=== PATIENT | male | born 1930 | race Caucasian/White ===

== ENCOUNTER 2017-11-26 20:11 | Inpatient (IN) | payer MEDICARE, BC, OTHER ==
[~2017-11-26] VITALS: Ht 172.7 cm; Wt 93.0 kg
[2017-11-26 20:27] VITALS: BP 180/90; PULSE 97; RESP 16; TEMP 97.9; O2SAT 98
[2017-11-26 22:08] LABS: AUTOMATED NEUTROPHIL # 5.9 TH/MM3 (1.8-7.7); BASOPHIL # 0.1 TH/MM3 (0-0.2); BASOPHIL % 1.1 % (0.0-2.0); EOSINOPHIL # 0.2 TH/MM3 (0-0.4); EOSINOPHIL % 2.5 % (0.0-4.0); HEMATOCRIT 40.4 % (39.0-51.0); HEMOGLOBIN 13.6 GM/DL (13.0-17.0); LYMPH % 19.9 % (9.0-44.0); LYMPHOCYTE # 1.8 TH/MM3 (1.0-4.8); MEAN CELL VOLUME 87.8 FL (80.0-100.0); MEAN CORPUSCULAR HEMOGLOBIN 29.6 PG (27.0-34.0); MEAN CORPUSCULAR HGB CONC 33.7 % (32.0-36.0); MEAN PLATELET VOLUME 7.6 FL (7.0-11.0); MONO % 9.6 % (0.0-8.0); MONOCYTE # 0.8 TH/MM3 (0-0.9); NEUT % 66.9 % (16.0-70.0); PLATELET COUNT 281 TH/MM3 (150-450); RED CELL DISTRIBUTION WIDTH 14.3 % (11.6-17.2); WHITE BLOOD COUNT 8.8 TH/MM3 (4.0-11.0)
[2017-11-26 22:22] LABS: ALBUMIN 3.4 GM/DL (3.4-5.0); AST (GOT) 17 U/L (15-37); BICARBONATE 25.2 MEQ/L (21.0-32.0); BLOOD UREA NITROGEN 15 MG/DL (7-18); CALCIUM 9.4 MG/DL (8.5-10.1); CHLORIDE 105 MEQ/L (98-107); CREATININE 1.59 MG/DL (0.60-1.30); GLOMERULAR FILTRATION RATE 42 ML/MIN (>89); GLUCOSE,RANDOM 141 MG/DL (74-106); SODIUM (NA) 138 MEQ/L (136-145)
[2017-11-26 22:23] LABS: ALT (GPT) 13 U/L (12-78)
[2017-11-26 22:25] LABS: ALKALINE PHOSPHATASE 71 U/L (45-117); TOTAL BILIRUBIN ADULT 0.6 MG/DL (0.2-1.0); TOTAL PROTEIN 7.8 GM/DL (6.4-8.2)
--- NOTE | 2017-11-26 22:45 | PD ---
HPI Chief Complaint: Psychiatric Symptoms Time Seen by Provider: 22:37 Travel History International Travel<30 days: No Contact w/Intl Traveler<30days: No Traveled to known affect area: No History of Present Illness HPI 87-year-old male brought to the emergency department by PD under a [place] act. According to the [place] act the patient drove himself to [facility] and advised he has no idea where he is. The [place] act states that he believes it is 2016 and his who has been for 3 years is still alive and resides with him. The patient actually lives alone and has no local family or caregiver. The [place] act states he is unaware of his surroundings and is unable to care for himself and he is showing signs of dementia. On my exam the patient is awake and alert and is oriented to person and place. He tells me he has no idea why he is in the emergency department, but he states he is not sick and has no physical complaints. Apparently DCF was also contacted by PD, however they state that they have 24 hours to respond. PFSH Past Medical History Medical History: Denies Significant Hx Past Surgical History Surgical History: No Previous Surgery Social History Alcohol Use: Yes Tobacco Use: No Substance Use: No Allergies-Medications (Allergen,Severity, Reaction): Uncoded Allergies: PEANUTS (Allergy, Severe, 05/01/06) Reported Meds & Prescriptions Reported Meds & Active Scripts Active Ceftin (Cefuroxime Axetil) 250 Mg Tab 500 Mg PO BID 7 Days Review of Systems Except as stated in HPI: all other systems reviewed are Neg Physical Exam Narrative GENERAL: Well-developed, well-nourished, pleasant, elderly-appearing male, awake , alert, watching TV, no apparent distress. SKIN: Focused skin assessment warm/dry. No rash. HEAD: Atraumatic. Normocephalic. EYES: Pupils equal and round. No scleral icterus. No injection or drainage. ENT: Mucous membranes pink and moist. NECK: Trachea midline. No JVD. CARDIOVASCULAR: Regular rate and rhythm. No murmur appreciated. RESPIRATORY: No accessory muscle use. Clear to auscultation. Breath sounds equal bilaterally. GASTROINTESTINAL: Abdomen soft, non-tender, nondistended. MUSCULOSKELETAL: No obvious deformities. No clubbing. No cyanosis. No edema. NEUROLOGICAL: Awake and alert. No obvious cranial nerve deficits. Motor grossly within normal limits. Normal speech. PSYCHIATRIC: Appropriate mood and affect; insight and judgment normal. Data Data Last Documented VS Vital Signs Date Time Temp Pulse Resp B/P (MAP) Pulse Ox O2 Delivery O2 Flow Rate FiO2 11/26/17 20:27 97.9 97 16 180/90 (120) 98 Orders Orders Complete Blood Count With Diff (11/26/17 21:17) Comprehensive Metabolic Panel (11/26/17 21:17) Psych Screen (11/26/17 21:17) Drug Screen, Random Urine (11/26/17 21:17) Urinalysis - C+S If Indicated (11/26/17 22:34) Urine Culture (11/26/17 23:25) Lorazepam Inj (Ativan Inj) (11/27/17 00:30) Ceftriaxone Inj (Rocephin Inj) (11/27/17 00:30) Labs Laboratory Tests Test 11/26/17 22:00 11/26/17 23:25 White Blood Count 8.8 TH/MM3 Red Blood Count 4.60 MIL/MM3 Hemoglobin 13.6 GM/DL Hematocrit 40.4 % Mean Corpuscular Volume 87.8 FL Mean Corpuscular Hemoglobin 29.6 PG Mean Corpuscular Hemoglobin Concent 33.7 % Red Cell Distribution Width 14.3 % Platelet Count 281 TH/MM3 Mean Platelet Volume 7.6 FL Neutrophils (%) (Auto) 66.9 % Lymphocytes (%) (Auto) 19.9 % Monocytes (%) (Auto) 9.6 % Eosinophils (%) (Auto) 2.5 % Basophils (%) (Auto) 1.1 % Neutrophils # (Auto) 5.9 TH/MM3 Lymphocytes # (Auto) 1.8 TH/MM3 Monocytes # (Auto) 0.8 TH/MM3 Eosinophils # (Auto) 0.2 TH/MM3 Basophils # (Auto) 0.1 TH/MM3 CBC Comment DIFF FINAL Differential Comment Blood Urea Nitrogen 15 MG/DL Creatinine 1.59 MG/DL Random Glucose 141 MG/DL Total Protein 7.8 GM/DL Albumin 3.4 GM/DL Calcium Level 9.4 MG/DL Alkaline Phosphatase 71 U/L Aspartate Amino Transf (AST/SGOT) 17 U/L Alanine Aminotransferase (ALT/SGPT) 13 U/L Total Bilirubin 0.6 MG/DL Sodium Level 138 MEQ/L Potassium Level 4.5 MEQ/L Chloride Level 105 MEQ/L Carbon Dioxide Level 25.2 MEQ/L Anion Gap 8 MEQ/L Estimat Glomerular Filtration Rate 42 ML/MIN Urine Color YELLOW Urine Turbidity HAZY Urine pH 6.0 Urine Specific [place] 1.016 Urine Protein 30 mg/dL Urine Glucose (UA) NEG mg/dL Urine Ketones NEG mg/dL Urine Occult Blood SMALL Urine Nitrite NEG Urine Bilirubin NEG Urine Urobilinogen LESS THAN 2.0 MG/DL Urine Leukocyte Esterase LARGE Urine RBC 9 /hpf Urine WBC 44 /hpf Urine Squamous Epithelial Cells 4 /hpf Urine Amorphous Sediment RARE Urine Bacteria FEW /hpf Urine Hyaline Casts 12 /lpf Urine Mucus FEW /lpf Microscopic Urinalysis Comment CULTURE INDICATED Urine Opiates Screen NEG Urine Barbiturates Screen NEG Urine Amphetamines Screen NEG Urine Benzodiazepines Screen NEG Urine Cocaine Screen NEG Urine Cannabinoids Screen NEG MDM Medical Decision Making Medical Screen Exam Complete: Yes Emergency Medical Condition: Yes Differential Diagnosis Dementia, delirium, UTI, metabolic abnormality Narrative Course Vital signs reviewed. CBC is unremarkable. CMP is remarkable for creatinine 1.6, GFR 42, random glucose 141, otherwise unremarkable. UA: Is suggestive of UTI. The patient has been medically cleared by me for psychiatric evaluation and further disposition by them. At the request of the patient's nurse, the patient was provided 1 mg of Ativan as he appeared to be slightly agitated and sundowning, in an attempt to help him sleep. Nursing the foot was able to contact the patient's family/next of kin to inform them that the patient is in the emergency department under a [place] Act. Patient was given 1 g of IV Rocephin and will be s given a prescription for Ceftin. Diagnosis Primary Impression: Medical clearance for psychiatric admission Additional Impression: UTI (urinary tract infection) Qualified Codes: N39.0 - Urinary tract infection, site not specified; R31.9 - Hematuria, unspecified Scripts Cefuroxime (Ceftin) 250 Mg Tab 500 MG PO BID for 7 Days, #28 TAB Prov: Rene Muse MD 11/27/17 Rene Muse MD Nov 26, 2017 22:45
[2017-11-26 23:41] LABS: AMORPHOUS SEDIMENT, URINE RARE; BACTERIA, URINE FEW /hpf; BILIRUBIN, URINE NEG (NEG); BLOOD, URINE SMALL (NEG); GLUCOSE,URINE NEG (NEG); HYALINE CAST, URINE 12 /lpf (RARE); KETONE, URINE NEG (NEG); MUCUS URINE FEW /lpf (OCC); NITRITE,URINE NEG (NEG); SQUAMOUS EPITHELIAL CELL URINE 4 /hpf (0-5); URINE COLOR YELLOW (YELLW/STRAW); URINE LEUKOCYTE ESTERASE LARGE (NEG)
[2017-11-27] MEDS ORDERED: CEFU1TAB18 PO (00:21)
[2017-11-27] MEDS ORDERED: LORazepam 2 MG/ML VIAL IV PUSH ONE (00:30)
[2017-11-27] MEDS ORDERED: cefTRIAXone INJ 1,000 MG in SODIUM CHLORIDE 0.9% INJ 100 ML IV ONE (00:30)
[2017-11-27 07:40] VITALS: BP 175/65; PULSE 75; RESP 19; O2SAT 96
--- NOTE | 2017-11-27 10:40 | PD ---
History of Present Illness Chief Complaint: Psychiatric Symptoms Time Seen by Provider: 10:00 Travel History International Travel<30 Days: No Contact w/Intl Traveler<30days: No Known affected area: No Legal Status Legal Status: [employer] Act History of Present Illness: History of Present Illness HPI 87-year-old male, , lives by himself, with no reported psychiatric history who is brought to the emergency department by PD under a [place] act. According to the [place] act report " Drove himself to [facility] and advised he has no idea where he is. He believes it is 2015 and his who has been for 3 years is still alive and resides with him, he is unaware of his surroundings and is unable to care for himself and he is showing signs of dementia." Electronic medical record is reviewed. No previous contact with [facility] psychiatry. Patient has been diagnosed with UTI here in the ED. Patient is seen in main ED. He is alert, oriented to person, states it's November 2018, that he is 86 years old, and that he is" in a helpful place". He later identifies it as a hospital. He is calm and makes an effort at answering my questions. He acknowledges that he gets confused when he is trying to answer questions. He tells me that he lives at home with his and his 3 kids and that his 's name is Astrid. He also tells me that he lives right outside of [place]. When asked who the president is he states "the president is a bit of a nut". He is unable to tell me who the president is. He does not appear internally preoccupied and he denies any hallucinations. I cannot elicit any delusions or paranoia. He denies any feelings of sadness or depression. No suicidal or homicidal ideation. When I asked him about him being brought here by the police he is unable to tell me what happened that brought him here and why he is in the hospital. Attention and concentration are decreased. Fund of knowledge appears to be average. Some of the history is unavailable due to patient's memory impairment. JAY Rocha who is taking care of the patient reports to me that he has contacted the patient's daughter who states she has been attempting to get him into a more supervised setting since she has noticed an increase in his episodes of confusion but he has been resisting such. PFSH Past Medical History Medical History: Denies Significant Hx Past Surgical History Surgical History: No Previous Surgery Psychiatric History Psychiatric History Hx Psychiatric Treatment: None reported by family History of Inpatient Treatment: No Social History Patient states he was born in [place]. As per record he is . He lives by himself. He worked in some type of" [employer]". Hx Alcohol Use: Yes Hx Tobacco Use: No Hx Substance Use: No Family Psychiatric History Unknown Allergies-Medications (Allergen,Severity, Reaction): Uncoded Allergies: PEANUTS (Allergy, Severe, 05/01/06) Reported Meds & Prescriptions Reported Meds & Active Scripts Active Ceftin (Cefuroxime Axetil) 250 Mg Tab 500 Mg PO BID 7 Days Review of Systems ROS Limitations: Poor Historian Mental Status Examination Appearance: Appropriate Consciousness: Alert Orientation: Person, Place, Date/Time (partial states his 2019), Situation ( states he isn't a helpful place) Speech: Slow Language: Adequate Fund of Knowledge: Adequate (appears average) Attention and Concentration: Easily Distracted Memory: Impaired Mood: Appropriate Affect: Appropriate Thought Process & Associations: Logical Thought Content: Appropriate Hallucination Type: None Delusion Type: None Suicidal Ideation: No Suicidal Plan: No Suicidal Intention: No Homicidal Ideation: No Homicidal Plan: No Homicidal Intention: No Insight: Poor Judgment: Poor MDM Medical Decision Making Medical Record Reviewed: Yes Assessment/Plan 87-year-old male, , lives by himself, with no reported psychiatric history who is brought to the emergency department by PD under a [place] act. According to the [place] act report " Drove himself to [facility] and advised he has no idea where he is. He believes it is 2015 and his who has been for 3 years is still alive and resides with him, he is unaware of his surroundings and is unable to care for himself and he is showing signs of dementia." Patient demonstrates memory impairment with some confusion. He does not present any hallucinations, no delusions, no paranoia. Denies any feelings of sadness or depression. Denies any suicidal or homicidal ideation, intent or plan. Patient unable to care for himself as evidenced by driving to the pharmacy and unable to find his way back home. His daughter is concerned about his safety as well. Patient does not meet criteria for inpatient psychiatric treatment. Diagnosed with UTI here in the ED. Although this may be contributing to some of his confusion his family has already verbalize their concern for his ability to care for himself and to remain living independently. Does not meet criteria for [place] act. I have lifted the [place] act. Case management will need to be involved for discharge planning. Orders Orders Complete Blood Count With Diff (11/26/17 21:17) Comprehensive Metabolic Panel (11/26/17 21:17) Psych Screen (11/26/17 21:17) Drug Screen, Random Urine (11/26/17 21:17) Urinalysis - C+S If Indicated (11/26/17 22:34) Urine Culture (11/26/17 23:25) Lorazepam Inj (Ativan Inj) (11/27/17 00:30) Ceftriaxone Inj (Rocephin Inj) (11/27/17 00:30) Diet Regular Basic (11/27/17 Breakfast) Restraints Non-Violent EDUARD.Q3H (11/27/17 08:12) Results Vital Signs Date Time Temp Pulse Resp B/P (MAP) Pulse Ox O2 Delivery O2 Flow Rate FiO2 11/27/17 07:40 75 19 175/65 (101) 96 Room Air 11/26/17 20:27 97.9 97 16 180/90 (120) 98 Laboratory Tests Test 11/26/17 22:00 11/26/17 23:25 White Blood Count 8.8 Red Blood Count 4.60 Hemoglobin 13.6 Hematocrit 40.4 Mean Corpuscular Volume 87.8 Mean Corpuscular Hemoglobin 29.6 Mean Corpuscular Hemoglobin Concent 33.7 Red Cell Distribution Width 14.3 Platelet Count 281 Mean Platelet Volume 7.6 Neutrophils (%) (Auto) 66.9 Lymphocytes (%) (Auto) 19.9 Monocytes (%) (Auto) 9.6 Eosinophils (%) (Auto) 2.5 Basophils (%) (Auto) 1.1 Neutrophils # (Auto) 5.9 Lymphocytes # (Auto) 1.8 Monocytes # (Auto) 0.8 Eosinophils # (Auto) 0.2 Basophils # (Auto) 0.1 CBC Comment DIFF FINAL Differential Comment Blood Urea Nitrogen 15 Creatinine 1.59 Random Glucose 141 Total Protein 7.8 Albumin 3.4 Calcium Level 9.4 Alkaline Phosphatase 71 Aspartate Amino Transf (AST/SGOT) 17 Alanine Aminotransferase (ALT/SGPT) 13 Total Bilirubin 0.6 Sodium Level 138 Potassium Level 4.5 Chloride Level 105 Carbon Dioxide Level 25.2 Anion Gap 8 Estimat Glomerular Filtration Rate 42 Urine Color YELLOW Urine Turbidity HAZY Urine pH 6.0 Urine Specific [place] 1.016 Urine Protein 30 Urine Glucose (UA) NEG Urine Ketones NEG Urine Occult Blood SMALL Urine Nitrite NEG Urine Bilirubin NEG Urine Urobilinogen LESS THAN 2.0 Urine Leukocyte Esterase LARGE Urine RBC 9 Urine WBC 44 Urine Squamous Epithelial Cells 4 Urine Amorphous Sediment RARE Urine Bacteria FEW Urine Hyaline Casts 12 Urine Mucus FEW Microscopic Urinalysis Comment CULTURE INDICATED Urine Opiates Screen NEG Urine Barbiturates Screen NEG Urine Amphetamines Screen NEG Urine Benzodiazepines Screen NEG Urine Cocaine Screen NEG Urine Cannabinoids Screen NEG Date/Time Source Procedure Growth Status 11/26/17 23:25 Urine Clean Catch Urine Culture Pending Received Diagnosis Primary Impression: Medical clearance for psychiatric admission Additional Impressions: UTI (urinary tract infection) Mild cognitive impairment with memory loss Alzheimer's dementia without behavioral disturbance Psychiatrically Cleared: Yes Prescriptions Cefuroxime (Ceftin) 250 Mg Tab 500 MG PO BID for 7 Days, #28 TAB Prov: Rene Muse MD 11/27/17 Problem Qualifiers Additional Impressions: UTI (urinary tract infection) Qualified Codes: N39.0 - Urinary tract infection, site not specified; R31.9 - Hematuria, unspecified Alzheimer's dementia without behavioral disturbance Qualified Codes: G30.1 - Alzheimer's disease with late onset; F02.80 - Dementia in other diseases classified elsewhere without behavioral disturbance Kat Marlow Nov 27, 2017 10:40
--- NOTE | 2017-11-27 11:53 | PD ---
Physical Exam Date Seen by Provider: Nov 27, 2017 Time Seen by Provider: 11:46 Data Data Last Documented VS Vital Signs Date Time Temp Pulse Resp B/P (MAP) Pulse Ox O2 Delivery O2 Flow Rate FiO2 11/27/17 07:40 75 19 175/65 (101) 96 Room Air 11/26/17 20:27 97.9 Orders Orders Complete Blood Count With Diff (11/26/17 21:17) Comprehensive Metabolic Panel (11/26/17 21:17) Psych Screen (11/26/17 21:17) Drug Screen, Random Urine (11/26/17 21:17) Urinalysis - C+S If Indicated (11/26/17 22:34) Urine Culture (11/26/17 23:25) Lorazepam Inj (Ativan Inj) (11/27/17 00:30) Ceftriaxone Inj (Rocephin Inj) (11/27/17 00:30) Diet Regular Basic (11/27/17 Breakfast) Restraints Non-Violent EDUARD.Q3H (11/27/17 08:12) Admit Order (Ed Use Only) (11/27/17 12:11) Comprehensive Metabolic Panel (11/28/17 06:00) Free Thyroxine (T4) (11/28/17 06:00) Hemoglobin (Hgb) A1c (11/28/17 06:00) Magnesium (Mg) (11/28/17 06:00) Phosphorus (Po4) (11/28/17 06:00) Thyroid Stimulating Hormone (11/28/17 06:00) Complete Blood Count With Diff (11/28/17 06:00) Place In Observation (11/27/17 ) Code Status (11/27/17 12:09) Vital Signs (Adult) Q4H (11/27/17 12:09) Activity Oob With Assistance (11/27/17 12:09) Bedside Glucose EDUARD.CSUGAR (11/27/17 12:09) Capacity Management Specialist / Telemetry .CONTINUOUS (11/27/17 12:09) Intake + Output EDUARD.QSHIFT (11/27/17 12:09) Diet Heart Healthy (11/27/17 Lunch) Sodium Chloride 0.9% Flush (Ns Flush) (11/27/17 12:15) Sodium Chloride 0.9% Flush (Ns Flush) (11/27/17 21:00) Acetaminophen (Tylenol) (11/27/17 12:15) Ondansetron Inj (Zofran Inj) (11/27/17 12:15) Metoclopramide Inj (Reglan Inj) (11/27/17 12:15) Resp Oxygen Azam C Titrat 1-4 L (11/27/17 ) Pt Request For Service (11/27/17 12:09) Ot Request For Service (11/27/17 12:09) Speech Therapy Consult-Eval/Tx (11/27/17 12:09) Case Management Consult (11/27/17 12:09) Scd Bilateral/Knee High EDUARD.BID (11/27/17 12:09) Arnold Bilateral/Knee High EDUARD.QSHIFT (11/27/17 12:15) Acetaminophen (Tylenol) (11/27/17 12:15) Acetamin-Hydrocod 325-5 Mg ([place] 5-325 (11/27/17 12:15) Acetamin-Hydrocod 325-10 Mg ([place] 10-32 (11/27/17 12:15) Morphine Inj (Morphine Inj) (11/27/17 12:15) Morphine Inj (Morphine Inj) (11/27/17 12:15) Naloxone Inj (Narcan Inj) (11/27/17 12:15) Docusate Sodium-Senna (Queenie-Colace) (11/27/17 21:00) Magnesium Hydroxide Liq (Milk Of Magnesi (11/27/17 12:15) Sennosides (Senokot) (11/27/17 12:15) Bisacodyl Supp (Dulcolax Supp) (11/27/17 12:15) Lactulose Liq (Lactulose Liq) (11/27/17 12:15) Labs Laboratory Tests Test 11/26/17 22:00 11/26/17 23:25 White Blood Count 8.8 TH/MM3 Red Blood Count 4.60 MIL/MM3 Hemoglobin 13.6 GM/DL Hematocrit 40.4 % Mean Corpuscular Volume 87.8 FL Mean Corpuscular Hemoglobin 29.6 PG Mean Corpuscular Hemoglobin Concent 33.7 % Red Cell Distribution Width 14.3 % Platelet Count 281 TH/MM3 Mean Platelet Volume 7.6 FL Neutrophils (%) (Auto) 66.9 % Lymphocytes (%) (Auto) 19.9 % Monocytes (%) (Auto) 9.6 % Eosinophils (%) (Auto) 2.5 % Basophils (%) (Auto) 1.1 % Neutrophils # (Auto) 5.9 TH/MM3 Lymphocytes # (Auto) 1.8 TH/MM3 Monocytes # (Auto) 0.8 TH/MM3 Eosinophils # (Auto) 0.2 TH/MM3 Basophils # (Auto) 0.1 TH/MM3 CBC Comment DIFF FINAL Differential Comment Blood Urea Nitrogen 15 MG/DL Creatinine 1.59 MG/DL Random Glucose 141 MG/DL Total Protein 7.8 GM/DL Albumin 3.4 GM/DL Calcium Level 9.4 MG/DL Alkaline Phosphatase 71 U/L Aspartate Amino Transf (AST/SGOT) 17 U/L Alanine Aminotransferase (ALT/SGPT) 13 U/L Total Bilirubin 0.6 MG/DL Sodium Level 138 MEQ/L Potassium Level 4.5 MEQ/L Chloride Level 105 MEQ/L Carbon Dioxide Level 25.2 MEQ/L Anion Gap 8 MEQ/L Estimat Glomerular Filtration Rate 42 ML/MIN Urine Color YELLOW Urine Turbidity HAZY Urine pH 6.0 Urine Specific [place] 1.016 Urine Protein 30 mg/dL Urine Glucose (UA) NEG mg/dL Urine Ketones NEG mg/dL Urine Occult Blood SMALL Urine Nitrite NEG Urine Bilirubin NEG Urine Urobilinogen LESS THAN 2.0 MG/DL Urine Leukocyte Esterase LARGE Urine RBC 9 /hpf Urine WBC 44 /hpf Urine Squamous Epithelial Cells 4 /hpf Urine Amorphous Sediment RARE Urine Bacteria FEW /hpf Urine Hyaline Casts 12 /lpf Urine Mucus FEW /lpf Microscopic Urinalysis Comment CULTURE INDICATED Urine Opiates Screen NEG Urine Barbiturates Screen NEG Urine Amphetamines Screen NEG Urine Benzodiazepines Screen NEG Urine Cocaine Screen NEG Urine Cannabinoids Screen NEG MDM Medical Record Reviewed: Yes Supervised Visit with GEORGETTE: Yes Narrative Course 87-year-old male with a history of Alzheimer's dementia with behavioral disturbance presented to the emergency room under [place] act initiated by Police Department. Patient was found wandering in the convenient store so [place] [employer] were called and placed him under the [employer] act. He was not alert and oriented. Patient believes his who 3 years ago is still alive. The police filed a report with [facility]. Patient lives alone and drove himself to the convenient store. His children have been trying to move him back [place] but he has been resistant. Physical exam is reassuring. Patient is sitting up in bed, watching TV. CBC and CMP are essentially unremarkable. Patient does have acute kidney injury with a creatinine of 1.59 with unknown baseline. UA does show evidence of infection for which patient was given ceftriaxone in the emergency room. Patient was initially agitated last night and had to be restrained with Ativan. To prevent him from falling in his disoriented state, he was placed in restraints this morning. Patient is occasionally alert and oriented but he is not a safe discharge at this time. Patient was seen by psychiatry and the [place] act was lifted. Case management became involved and stated he is not safe for discharge and will need to be admitted until his family can pick him up. His family is from [place] and his son will not be able to come pick him up until Friday. I spoke to Dr. Ledesma who is willing to accept this patient to his service. Diagnosis Primary Impression: Medical clearance for psychiatric admission Additional Impressions: Mild cognitive impairment with memory loss Alzheimer's dementia without behavioral disturbance Qualified Codes: G30.1 - Alzheimer's disease with late onset; F02.80 - Dementia in other diseases classified elsewhere without behavioral disturbance UTI (urinary tract infection) Qualified Codes: N39.0 - Urinary tract infection, site not specified; R31.9 - Hematuria, unspecified Admitting Information Admitting Physician Requests: Observation Scripts Cefuroxime (Ceftin) 250 Mg Tab 500 MG PO BID for 7 Days, #28 TAB Prov: Rene Muse MD 11/27/17 Jelean Fernandes Nov 27, 2017 11:53
[2017-11-27] MEDS ORDERED: ACETAMINOPHEN/HYDROcodone 325 MG/5 MG TAB PO PRN (12:15)
[2017-11-27] MEDS ORDERED: ACETAMINOPHEN/HYDROcodone 325 MG/10 MG TAB PO PRN (12:15)
[2017-11-27] MEDS ORDERED: ONDANSETRON HCL 4 MG/2 ML VIAL IVP PRN (12:15)
[2017-11-27] MEDS ORDERED: LACTULOSE SYRUP 20 GM/30 ML CUP PO PRN (12:15)
[2017-11-27] MEDS ORDERED: ACETAMINOPHEN 325 MG TAB PO PRN ×2 (12:15)
[2017-11-27] MEDS ORDERED: SENNOSIDES 8.6 MG TAB PO PRN (12:15)
[2017-11-27] MEDS ORDERED: BISACODYL 10 MG SUPP RECTAL PRN (12:15)
[2017-11-27] MEDS ORDERED: SODIUM CHLORIDE 0.9% FLUSH 10 ML FLUSH IV FLUSH PRN (12:15)
[2017-11-27] MEDS ORDERED: MORPHINE SULFATE 2 MG/ML INJ IV PUSH PRN ×2 (12:15)
[2017-11-27] MEDS ORDERED: METOCLOPRAMIDE HCL 10 MG/2 ML VIAL IV PUSH PRN (12:15)
[2017-11-27] MEDS ORDERED: NALOXONE HCL 0.4 MG/ML AMP IV PUSH PRN (12:15)
[2017-11-27] MEDS ORDERED: MAGNESIUM HYDROXIDE SUSP 30 ML CUP PO PRN (12:15)
[2017-11-27 12:25] VITALS: BP 167/79; PULSE 88; RESP 18; O2SAT 100
--- NOTE | 2017-11-27 15:42 | HHI.HP ---
[facility] Unknown Admission Diagnosis Alzheimer's dementia, unsafe discharge, UTI Diagnoses: (1) Alzheimer's dementia Diagnosis: Principal (2) Gait instability Diagnosis: Principal (3) Alzheimer's dementia without behavioral disturbance Diagnosis: Secondary (4) UTI (urinary tract infection) Diagnosis: Principal (5) Confusion Diagnosis: Principal Chief Complaint: Psychiatric symptoms Travel History International Travel<30 Days: No Contact w/Intl Traveler <30 Da: No Traveled to Known Affected Are: No History of Present Illness Patient is a 87-year-old gentleman who was brought into the emergency department initially by the police department and was placed under [place] act. According to the Tinoco act the patient drove himself to [facility] and then stated he had no idea where he was. The [place] act stated that he believed it was 2015 and his has been for 3 years still alive and resides with him. He lives alone. Has no local family or caregiver. They correct stated that he was unaware of his surroundings unable to care for himself and is now showing signs of dementia. Patient is awake and alert and oriented to person and place he has no idea why he is in the emergency department states he is not sick. DCF was consulted by the Police Department patient was evaluated in the emergency department found to have urinary tract infection which we will treat [place] to get him over the weekend. We will ask physical therapy to eval and treat as well as occupational therapy and speech therapy FALL precautions Review of Systems Constitutional: COMPLAINS OF: Fatigue, DENIES: Diaphoretic episodes, Fever, Weight gain, Weight loss, Chills, Dizziness, Change in appetite, Night Sweats Endocrine: DENIES: Heat/cold intolerance, Polydipsia, Polyuria, Polyphagia Eyes: DENIES: Blurred vision, Diplopia, Eye inflammation, Eye pain, Vision loss , Photosensitivity, Double Vision Ears, nose, mouth, throat: DENIES: Tinnitus, Hearing loss, Vertigo, Nasal discharge, Oral lesions, Throat pain, Hoarseness, Ear Pain, Running Nose, Epistaxis, Sinus Pain, Toothache, Odynophagia Respiratory: DENIES: Apneas, Cough, Snoring, Wheezing, Hemoptysis, Sputum production, Shortness of breath Cardiovascular: DENIES: Chest pain, Palpitations, Syncope, Dyspnea on Exertion , PND, Lower Extremity Edema, Orthopnea, Claudication Gastrointestinal: DENIES: Abdominal pain, Black stools, Bloody stools, Constipation, Diarrhea, Nausea, Vomiting, Difficulty Swallowing, Anorexia Genitourinary: DENIES: Sexual dysfunction, Urinary frequency, Urinary incontinence, Urgency, Hematuria, Dysuria, Nocturia, Penile Discharge Musculoskeletal: DENIES: Joint pain, Muscle aches, Stiffness, Joint Swelling, Back pain, Neck pain Integumentary: DENIES: Abnormal pigmentation, Nail changes, Pruritus, Rash Hematologic/lymphatic: DENIES: Bruising, Lymphadenopathy Immunologic/allergic: DENIES: Eczema, Urticaria Neurologic: DENIES: Abnormal gait, Headache, Localized weakness, Paresthesias, Seizures, Speech Problems, Tremor, Poor Balance Psychiatric: COMPLAINS OF: Anxiety, Confusion, Depression, DENIES: Mood changes , Hallucinations, Agitation, Suicidal Ideation, Homicidal Ideation, Delusions Except as stated in HPI: all other systems reviewed are Neg Past Family Social History Past Medical History Unknown Past Surgical History Unknown Probable cataract Reported Medications Unobtainable Allergies: Uncoded Allergies: PEANUTS (Allergy, Severe, 05/01/06) Active Ordered Medications Current Medications Lorazepam (Ativan Inj) 1 mg ONCE ONCE IV PUSH Last administered on 11/27/17at 00:30; Start 11/27/17 at 00:30; Stop 11/27/17 at 00:31; Status DC Ceftriaxone Sodium 1000 mg/ Sodium Chloride 100 ml @ 200 mls/hr ONCE ONCE IV Last administered on 11/27/17at 00:30; Start 11/27/17 at 00:30; Stop 11/27/17 at 00:59; Status DC Sodium Chloride (NS Flush) 2 ml UNSCH PRN IV FLUSH FLUSH AFTER USING IV ACCESS ; Start 11/27/17 at 12:15 Sodium Chloride (NS Flush) 2 ml BID IV FLUSH ; Start 11/27/17 at 21:00 Acetaminophen (Tylenol) 650 mg Q4H PRN PO TEMP > 100.4; Start 11/27/17 at 12:15 Ondansetron HCl (Zofran Inj) 4 mg Q6H PRN IVP NAUSEA OR VOMITING; Start at 12:15 Metoclopramide HCl (Reglan Inj) 5 mg Q6H PRN IV PUSH NAUSEA OR VOMITING; Start 11/27/17 at 12:15 Acetaminophen (Tylenol) 650 mg Q6H PRN PO PAIN SCALE 1 TO 2; Start 11/27/17 at 12:15 Acetaminophen/ Hydrocodone Bitart ([place] 5-325 Mg) 1 tab Q4H PRN PO PAIN SCALE 3 TO 5; Start 11/27/17 at 12:15 Acetaminophen/ Hydrocodone Bitart ([place] 10-325 Mg) 1 tab Q4H PRN PO PAIN SCALE 6 TO 10; Start 11/27/17 at 12:15 Morphine Sulfate (Morphine Inj) 2 mg Q3H PRN IV PUSH Pain 3-5; if unable to take PO; Start 11/27/17 at 12:15 Morphine Sulfate (Morphine Inj) 4 mg Q3H PRN IV PUSH Pain 6-10;if unable to take PO; Start 11/27/17 at 12:15 Naloxone HCl (Narcan Inj) 0.4 mg UNSCH PRN IV PUSH SEE LABEL COMMENTS; Start at 12:15 Senna/Docusate Sodium (Queenie-Colace) 1 tab BID PO ; Start 11/27/17 at 21:00 Magnesium Hydroxide (Milk Of Magnesia Liq) 30 ml Q12H PRN PO Mild constipation ; Start 11/27/17 at 12:15 Sennosides (Senokot) 17.2 mg Q12H PRN PO Moderate constipation; Start 11/27/17 at 12:15 Bisacodyl (Dulcolax Supp) 10 mg DAILY PRN RECTAL SEVERE CONSITIPATION; Start at 12:15 Lactulose (Lactulose Liq) 30 ml DAILY PRN PO SEVERE CONSITIPATION; Start at 12:15 Ceftriaxone Sodium 1000 mg/ Sodium Chloride 100 ml @ 200 mls/hr Q24H IV ; Start 11/28/17 at 00:00 Clonidine (Catapres) 0.1 mg Q4H PRN PO SBP>160, DBP>90; Start 11/27/17 at 12:30 Family History Unknown unobtainable from patient dementia Social History Lives alone 3 years ago Cannot tell me if he smokes or drinks Physical Exam Vital Signs Vital Signs Date Time Temp Pulse Resp B/P (MAP) Pulse Ox O2 Delivery O2 Flow Rate FiO2 11/27/17 12:25 88 18 167/79 (108) 100 Room Air 11/27/17 07:40 75 19 175/65 (101) 96 Room Air 11/26/17 20:27 97.9 97 16 180/90 (120) 98 Physical Exam GENERAL: This is a well-nourished, well-developed patient, in no apparent distress. Confused lying in his ER bed SKIN: No rashes, ecchymoses or lesions. Cool and dry. HEAD: Atraumatic. Normocephalic. No temporal or scalp tenderness. EYES: Pupils equal round and reactive. Extraocular motions intact. No scleral icterus. No injection or drainage. ENT: Nose without bleeding, purulent drainage or septal hematoma. Throat without erythema, tonsillar hypertrophy or exudate. Uvula midline. Airway patent. Tongue is midline NECK: Trachea midline. No JVD or lymphadenopathy. Supple, nontender, no meningeal signs. Supple CARDIOVASCULAR: Regular rate and rhythm without murmurs, gallops, or rubs. S1- S2 no S3 or S4 RESPIRATORY: Clear to auscultation. Breath sounds equal bilaterally. No wheezes , rales, or rhonchi. GASTROINTESTINAL: Abdomen soft, non-tender, nondistended. No hepato-splenomegaly , or palpable masses. No guarding. MUSCULOSKELETAL: Extremities without clubbing, cyanosis, or edema. No joint tenderness, effusion, . No calf tenderness. Negative Homans sign bilaterally. + 1-2 lower extremity edema NEUROLOGICAL: Awake and alert. Cranial nerves II through XII intact. Motor and sensory grossly within normal limits. 4 out of 5 muscle strength in all muscle groups. Normal speech. Insight and judgment is limited Mood and behavior are somewhat INappropriate Laboratory Laboratory Tests Test 11/26/17 22:00 11/26/17 23:25 White Blood Count 8.8 Red Blood Count 4.60 Hemoglobin 13.6 Hematocrit 40.4 Mean Corpuscular Volume 87.8 Mean Corpuscular Hemoglobin 29.6 Mean Corpuscular Hemoglobin Concent 33.7 Red Cell Distribution Width 14.3 Platelet Count 281 Mean Platelet Volume 7.6 Neutrophils (%) (Auto) 66.9 Lymphocytes (%) (Auto) 19.9 Monocytes (%) (Auto) 9.6 Eosinophils (%) (Auto) 2.5 Basophils (%) (Auto) 1.1 Neutrophils # (Auto) 5.9 Lymphocytes # (Auto) 1.8 Monocytes # (Auto) 0.8 Eosinophils # (Auto) 0.2 Basophils # (Auto) 0.1 CBC Comment DIFF FINAL Differential Comment Blood Urea Nitrogen 15 Creatinine 1.59 Random Glucose 141 Total Protein 7.8 Albumin 3.4 Calcium Level 9.4 Alkaline Phosphatase 71 Aspartate Amino Transf (AST/SGOT) 17 Alanine Aminotransferase (ALT/SGPT) 13 Total Bilirubin 0.6 Sodium Level 138 Potassium Level 4.5 Chloride Level 105 Carbon Dioxide Level 25.2 Anion Gap 8 Estimat Glomerular Filtration Rate 42 Urine Color YELLOW Urine Turbidity HAZY Urine pH 6.0 Urine Specific Corinne 1.016 Urine Protein 30 Urine Glucose (UA) NEG Urine Ketones NEG Urine Occult Blood SMALL Urine Nitrite NEG Urine Bilirubin NEG Urine Urobilinogen LESS THAN 2.0 Urine Leukocyte Esterase LARGE Urine RBC 9 Urine WBC 44 Urine Squamous Epithelial Cells 4 Urine Amorphous Sediment RARE Urine Bacteria FEW Urine Hyaline Casts 12 Urine Mucus FEW Microscopic Urinalysis Comment CULTURE INDICATED Urine Opiates Screen NEG Urine Barbiturates Screen NEG Urine Amphetamines Screen NEG Urine Benzodiazepines Screen NEG Urine Cocaine Screen NEG Urine Cannabinoids Screen NEG Date/Time Source Procedure Growth Status 11/26/17 23:25 Urine Clean Catch Urine Culture - Preliminary IMMATURE GROWTH - REINCUBATE Resulted Result Diagram: 11/26/17219911/26/172199 Caprini VTE Risk Assessment Caprini VTE Risk Assessment: Mod/High Risk (score >= 2) Caprini Risk Assessment Model Point Value = 1 Point Value = 2 Point Value = 3 Point Value = 5 Age 41-60 Minor surgery BMI > 25 kg/m2 Swollen legs Varicose veins or History of unexplained or recurrent spontaneous Oral contraceptives or hormone replacement Sepsis (< 1 month) Serious lung disease, including pneumonia (< 1 month) Abnormal pulmonary function Acute myocardial infarction Congestive heart failure (< 1 month) History of inflammatory bowel disease Medical patient at bed rest Age 61-74 Arthroscopic surgery Major open surgery (> 45 min) Laparoscopic surgery (> 45 min) Malignancy Confined to bed (> 72 hours) Immobilizing plaster cast Central venous access Age >= 75 History of VTE Family history of VTE Factor V Leiden Prothrombin [id number] Lupus anticoagulant Anticardiolipin antibodies Elevated serum homocysteine Heparin-induced thrombocytopenia Other congenital or acquired thrombophilia Stroke (< 1 month) Elective arthroplasty Hip, pelvis, or leg fracture Acute spinal cord injury (< 1 month) Prophylaxis Regimen Total Risk Factor Score Risk Level Prophylaxis Regimen 0-1 Low Early ambulation 2 Moderate Order ONE of the following: *Sequential Compression Device (SCD) *Heparin 5000 units SQ BID 3-4 Higher Order ONE of the following medications: *Heparin 5000 units SQ TID *Enoxaparin/Lovenox 40 mg SQ daily (WT < 150 kg, CrCl > 30 mL/min) *Enoxaparin/Lovenox 30 mg SQ daily (WT < 150 kg, CrCl > 10-29 mL/min) *Enoxaparin/Lovenox 30 mg SQ BID (WT < 150 kg, CrCl > 30 mL/min) AND/OR *Sequential Compression Device (SCD) 5 or more Highest Order ONE of the following medications: *Heparin 5000 units SQ TID (Preferred with Epidurals) *Enoxaparin/Lovenox 40 mg SQ daily (WT < 150 kg, CrCl > 30 mL/min) *Enoxaparin/Lovenox 30 mg SQ daily (WT < 150 kg, CrCl > 10-29 mL/min) *Enoxaparin/Lovenox 30 mg SQ BID (WT < 150 kg, CrCl > 30 mL/min) AND *Sequential Compression Device (SCD) Assessment and Plan Problem List: (1) Confusion ICD Code: R41.0 - Disorientation, unspecified (2) Alzheimer's dementia ICD Code: G30.9 - Alzheimer's disease, unspecified; F02.80 - Dementia in other diseases classified elsewhere without behavioral disturbance (3) Gait instability ICD Code: R26.81 - Unsteadiness on feet (4) Alzheimer's dementia without behavioral disturbance ICD Code: G30.9 - Alzheimer's disease, unspecified; F02.80 - Dementia in other diseases classified elsewhere without behavioral disturbance Status: Acute (5) Mild cognitive impairment with memory loss ICD Code: G31.84 - Mild cognitive impairment, so stated Status: Acute (6) UTI (urinary tract infection) ICD Code: N39.0 - Urinary tract infection, site not specified Status: Acute Assessment and Plan Urinary tract infection will place on Rocephin 1 g IV daily Alzheimer's dementia will consult psychiatry Gait instability continue on physical therapy and occupational therapy and speech therapy Fall precautions Confusion Code Status Full code at this time Discussed Condition With Emergency room physician and RN and patient Physician Certification 2 Midnight Certification Type: Admission for Inpatient Services Order for Inpatient Services The services are ordered in accordance with Medicare regulations or non- Medicare payer requirements, as applicable. In the case of services not specified as inpatient-only, they are appropriately provided as inpatient services in accordance with the 2-midnight benchmark. Estimated LOS (days): 3 days is the estimated time the patient will need to remain in the hospital, assuming treatment plan goals are met and no additional complications. Post-Hospital Plan: Not yet determined Problem Qualifiers (1) Alzheimer's dementia without behavioral disturbance: Qualified Codes: G30.1 - Alzheimer's disease with late onset; F02.80 - Dementia in other diseases classified elsewhere without behavioral disturbance (2) UTI (urinary tract infection): Qualified Codes: N39.0 - Urinary tract infection, site not specified; R31.9 - Hematuria, unspecified Braden Ledesma DO Nov 27, 2017 15:42
[2017-11-27 16:07] VITALS: BP_SYST 162; BP_SYST 179; BP_DIAS 95; BP_DIAS 99; PULSE 88; RESP 20; TEMP 97.6; O2SAT 98
[2017-11-27] MEDS: FAMOTIDINE 20 MG TAB PO SCH (20:26)
[2017-11-27] MEDS: DOCUSATE SODIUM 50 MG/SENNA 8.6 MG TAB PO SCH (20:26)
[2017-11-27] MEDS: SODIUM CHLORIDE 0.9% FLUSH 10 ML FLUSH IV FLUSH SCH (20:27)
[2017-11-27 20:38] VITALS: BP 215/103; PULSE 72; RESP 16; TEMP 98; O2SAT 98
[2017-11-27 20:39] VITALS: PULSE 72
[2017-11-27 20:50] VITALS: BP 185/110
[2017-11-27] MEDS: cloNIDine HCL 0.1 MG TAB PO PRN (20:54)
[2017-11-28] VITALS (7 sets, daily range): BP systolic 140–179; BP diastolic 60–94; PULSE 80–83; RESP 16–20; TEMP 97.8–98.7; O2SAT 93–98
[2017-11-28] MEDS: cefTRIAXone INJ 1,000 MG in SODIUM CHLORIDE 0.9% INJ 100 ML IV SCH (02:16)
[2017-11-28] MEDS: DOCUSATE SODIUM 50 MG/SENNA 8.6 MG TAB PO SCH ×2 (08:47→21:00)
[2017-11-28] MEDS: SODIUM CHLORIDE 0.9% FLUSH 10 ML FLUSH IV FLUSH SCH ×2 (08:47→21:30)
[2017-11-28] MEDS: FAMOTIDINE 20 MG TAB PO SCH ×2 (08:47→21:30)
[2017-11-28 09:53] LABS: AUTOMATED NEUTROPHIL # 4.1 TH/MM3 (1.8-7.7); BASOPHIL # 0.1 TH/MM3 (0-0.2); EOSINOPHIL # 0.4 TH/MM3 (0-0.4); EOSINOPHIL % 5.7 % (0.0-4.0); HEMATOCRIT 36.1 % (39.0-51.0); HEMOGLOBIN 12.4 GM/DL (13.0-17.0); LYMPHOCYTE # 1.5 TH/MM3 (1.0-4.8); MEAN CELL VOLUME 86.3 FL (80.0-100.0); MEAN CORPUSCULAR HEMOGLOBIN 29.5 PG (27.0-34.0); MEAN CORPUSCULAR HGB CONC 34.2 % (32.0-36.0); MEAN PLATELET VOLUME 7.7 FL (7.0-11.0); MONO % 12.6 % (0.0-8.0); MONOCYTE # 0.9 TH/MM3 (0-0.9); NEUT % 58.7 % (16.0-70.0); PLATELET COUNT 228 TH/MM3 (150-450); RED BLOOD COUNT 4.18 MIL/MM3 (4.50-5.90); RED CELL DISTRIBUTION WIDTH 14.6 % (11.6-17.2)
[2017-11-28 10:21] LABS: ALT (GPT) 10 U/L (12-78); AST (GOT) 12 U/L (15-37); BICARBONATE 24.9 MEQ/L (21.0-32.0); BLOOD UREA NITROGEN 14 MG/DL (7-18); CALCIUM 9.1 MG/DL (8.5-10.1); CHLORIDE 104 MEQ/L (98-107); CREATININE 1.46 MG/DL (0.60-1.30); GLOMERULAR FILTRATION RATE 46 ML/MIN (>89); GLUCOSE,RANDOM 95 MG/DL (74-106); MAGNESIUM 2.3 MG/DL (1.5-2.5); PHOSPHORUS 3.3 MG/DL (2.5-4.9); SODIUM (NA) 137 MEQ/L (136-145)
[2017-11-28 10:30] LABS: ALKALINE PHOSPHATASE 58 U/L (45-117); FREE T4 0.98 NG/DL (0.76-1.46); TOTAL BILIRUBIN ADULT 0.5 MG/DL (0.2-1.0); TOTAL PROTEIN 6.6 GM/DL (6.4-8.2)
--- NOTE | 2017-11-28 15:30 | HHI.PR ---
Subjective Remarks Patient reports he is feeling fine. He does not understand why he is in the Hospital. 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 Objective Vitals Vital Signs Date Time Temp Pulse Resp B/P (MAP) Pulse Ox O2 Delivery O2 Flow Rate FiO2 11/28/17 12:36 97.9 83 20 160/84 (109) 98 11/28/17 09:00 96 21 11/28/17 08:03 97.9 80 20 140/60 (86) 96 11/28/17 05:04 21 11/28/17 01:42 97.8 82 16 143/69 (93) 98 11/27/17 20:50 185/110 (135) 11/27/17 20:39 72 11/27/17 20:38 98.0 72 16 215/103 (140) 98 11/27/17 16:07 97.6 88 20 179/99 (125) 98 162/95 (117) I/O 11/27/17 11/27/17 11/27/17 11/28/17 11/28/17 11/28/17 07:00 15:00 23:00 07:00 15:00 23:00 # Voids 1 Result Diagram: 11/28/1792711/28/17927 Objective Remarks GENERAL: No acute distress, aware of self and place only. CARDIOVASCULAR: Regular rate and rhythm. RESPIRATORY: No accessory muscle use. Clear to auscultation. Breath sounds equal bilaterally. GASTROINTESTINAL: Abdomen soft, non-tender, nondistended. Hepatic and splenic margins not palpable. MUSCULOSKELETAL: Extremities without clubbing, cyanosis, or edema. No obvious deformities. NEUROLOGICAL: Awake and alert.Aware of self and place only. Five out of 5 muscle strength in the arms and legs. Normal speech. PSYCHIATRIC: Paranoid about the police but calm A/P Problem List: (1) Confusion ICD Code: R41.0 - Disorientation, unspecified (2) Alzheimer's dementia ICD Code: G30.9 - Alzheimer's disease, unspecified; F02.80 - Dementia in other diseases classified elsewhere without behavioral disturbance (3) Gait instability ICD Code: R26.81 - Unsteadiness on feet (4) Alzheimer's dementia without behavioral disturbance ICD Code: G30.9 - Alzheimer's disease, unspecified; F02.80 - Dementia in other diseases classified elsewhere without behavioral disturbance Status: Acute (5) Mild cognitive impairment with memory loss ICD Code: G31.84 - Mild cognitive impairment, so stated Status: Acute (6) UTI (urinary tract infection) ICD Code: N39.0 - Urinary tract infection, site not specified Status: Acute Assessment and Plan 87-year-old male with a prior to worsening dementia was found wandering. Patient brought in as a Tin[place] act. Tinoco act has been lifted and patient is to be discharged to his family but they are unable to come pick him up until tomorrow. Abnormal urinalysis: On Rocephin 1 g IV daily. Follow cultures Alzheimer's dementia with behavioral disturbances: Patient is currently calm. Has been evaluated by psychiatry. Tinoco act lifted. Gait instability continue on physical therapy and occupational therapy and speech therapy Fall precautions HTN: Probably untreated. Start Lisinopril. Problem Qualifiers (1) Alzheimer's dementia without behavioral disturbance: Qualified Codes: G30.1 - Alzheimer's disease with late onset; F02.80 - Dementia in other diseases classified elsewhere without behavioral disturbance (2) UTI (urinary tract infection): Qualified Codes: N39.0 - Urinary tract infection, site not specified; R31.9 - Hematuria, unspecified Phillip Gupta MD Nov 28, 2017 15:29
[2017-11-28 16:31] LABS: HEMOGLOBIN A1C 5.2 % (4.3-6.0)
[2017-11-28] MEDS: cloNIDine HCL 0.1 MG TAB PO PRN (18:10)
[2017-11-29] MEDS: cefTRIAXone INJ 1,000 MG in SODIUM CHLORIDE 0.9% INJ 100 ML IV SCH ×2
[2017-11-29 05:00] VITALS: BP 150/74; PULSE 86; RESP 14; TEMP 98.2; O2SAT 96
[2017-11-29 08:00] VITALS: BP 196/88; PULSE 73; RESP 18; TEMP 98.2; O2SAT 93
[2017-11-29] MEDS ORDERED: LISI10TA3 PO (08:46)
[2017-11-29] MEDS ORDERED: FAMO20TA2 PO (08:46)
[2017-11-29] MEDS ORDERED: LISINOPRIL 10 MG TAB PO SCH (09:00)
[2017-11-29] MEDS: FAMOTIDINE 20 MG TAB PO SCH (09:06)
[2017-11-29] MEDS: SODIUM CHLORIDE 0.9% FLUSH 10 ML FLUSH IV FLUSH SCH (09:07)
[2017-11-29] MEDS: cloNIDine HCL 0.1 MG TAB PO PRN (09:08)
--- NOTE | 2017-11-29 09:16 | HHI.DCPOC ---
Discharge Care Plan Diagnosis: (1) Alzheimer's dementia (2) Gait instability (3) Confusion Additional Problems Confusion, Forgetfulness Goals to Promote Your Health * To prevent worsening of your condition and complications * To maintain your health at the optimal level Directions to Meet Your Goals Take your medications as prescribed Follow your dietary instruction Follow activity as directed Keep your appointments as scheduled Take your immunizations and boosters as scheduled If your symptoms worsen call your PCP, if no PCP go to Urgent Care Center or Emergency Room Smoking is Dangerous to Your Health. Avoid second hand smoke Call the 24-hour hour crisis hotline for domestic abuse at Montrell Rivera Nov 29, 2017 09:16
--- NOTE | 2017-11-29 09:31 | HHI.PR ---
Subjective Remarks Patient in nad. Pleasantly confused. No complaints at this time. No events overnight. Patient will go home, family does not want MELIT[place]. Objective Vitals Vital Signs Date Time Temp Pulse Resp B/P (MAP) Pulse Ox O2 Delivery O2 Flow Rate FiO2 11/29/17 08:00 98.2 73 18 196/88 (124) 93 11/29/17 05:00 98.2 86 14 150/74 (99) 96 11/28/17 20:59 98.7 81 16 179/80 (113) 98 11/28/17 20:00 93 11/28/17 16:39 98.2 83 20 176/94 (121) 98 11/28/17 12:36 97.9 83 20 160/84 (109) 98 I/O 11/28/17 11/28/17 11/28/17 11/29/17 11/29/17 11/29/17 07:00 15:00 23:00 07:00 15:00 23:00 # Voids 2 Result Diagram: 11/28/1728 11/28/17927 Objective Remarks GENERAL: No acute distress, aware of self and place only. CARDIOVASCULAR: Regular rate and rhythm. RESPIRATORY: No accessory muscle use. Clear to auscultation. Breath sounds equal bilaterally. GASTROINTESTINAL: Abdomen soft, non-tender, nondistended. Hepatic and splenic margins not palpable. MUSCULOSKELETAL: Extremities without clubbing, cyanosis, or edema. No obvious deformities. NEUROLOGICAL: Awake and alert.Aware of self and place only. Five out of 5 muscle strength in the arms and legs. Normal speech. PSYCHIATRIC: Paranoid about the police but calm A/P Problem List: (1) Confusion ICD Code: R41.0 - Disorientation, unspecified (2) Alzheimer's dementia ICD Code: G30.9 - Alzheimer's disease, unspecified; F02.80 - Dementia in other diseases classified elsewhere without behavioral disturbance (3) Gait instability ICD Code: R26.81 - Unsteadiness on feet (4) Alzheimer's dementia without behavioral disturbance ICD Code: G30.9 - Alzheimer's disease, unspecified; F02.80 - Dementia in other diseases classified elsewhere without behavioral disturbance Status: Acute (5) Mild cognitive impairment with memory loss ICD Code: G31.84 - Mild cognitive impairment, so stated Status: Acute (6) UTI (urinary tract infection) ICD Code: N39.0 - Urinary tract infection, site not specified Status: Acute Assessment and Plan 87-year-old male with a prior to worsening dementia was found wandering. Patient brought in as a Tinoco act. Tinoco act has been lifted and patient is to be discharged to his family but they are unable to come pick him up until tomorrow. Abnormal urinalysis: Received Rocephin 1 g IV daily. However urine cultures are negative patien tis asymptomatic DC abx Alzheimer's dementia with behavioral disturbances: Patient is currently calm. Has been evaluated by psychiatry. Tinoco act lifted. Gait instability continue on physical therapy and occupational therapy and speech therapy Fall precautions HTN: Probably untreated. Started on Lisinopril. Continue to monitor and adjust dose as need. PT for eval DC plan: DC when arrangements done going home. They will follow-up with his PCP in [place]. Will have PT as outpatient. Family does not want to M[facility]. Problem Qualifiers (1) Alzheimer's dementia without behavioral disturbance: Qualified Codes: G30.1 - Alzheimer's disease with late onset; F02.80 - Dementia in other diseases classified elsewhere without behavioral disturbance (2) UTI (urinary tract infection): Qualified Codes: N39.0 - Urinary tract infection, site not specified; R31.9 - Hematuria, unspecified Lesley Perkins MD Nov 29, 2017 09:31
--- NOTE | 2017-11-29 09:34 | HHI.DS ---
Discharge Summary Admission Date Nov 27, 2017 at 15:18 Discharge Date: Nov 29, 2017 Admitting Diagnosis Alzheimer's dementia, unsafe discharge, UTI (1) Confusion ICD Code: R41.0 - Disorientation, unspecified (2) Alzheimer's dementia ICD Code: G30.9 - Alzheimer's disease, unspecified; F02.80 - Dementia in other diseases classified elsewhere without behavioral disturbance (3) Gait instability ICD Code: R26.81 - Unsteadiness on feet (4) Alzheimer's dementia without behavioral disturbance ICD Code: G30.9 - Alzheimer's disease, unspecified; F02.80 - Dementia in other diseases classified elsewhere without behavioral disturbance Status: Acute (5) Mild cognitive impairment with memory loss ICD Code: G31.84 - Mild cognitive impairment, so stated Status: Acute (6) UTI (urinary tract infection) ICD Code: N39.0 - Urinary tract infection, site not specified Status: Acute Procedures none Brief History - From Admission Patient is a 87-year-old gentleman who was brought into the emergency department initially by the police department and was placed under [place] act. According to the [place] act the patient drove himself to [facility] and then stated he had no idea where he was. The [place] act stated that he believed it was 2015 and his has been for 3 years still alive and resides with him. He lives alone. Has no local family or caregiver. They correct stated that he was unaware of his surroundings unable to care for himself and is now showing signs of dementia. Patient is awake and alert and oriented to person and place he has no idea why he is in the emergency department states he is not sick. DCF was consulted by the Police Department patient was evaluated in the emergency department found to have urinary tract infection which we will treat [place] to get him over the weekend. We will ask physical therapy to eval and treat as well as occupational therapy and speech therapy FALL precautions CBC/BMP: 11/28/17 0928 11/28/17 0928 Significant Findings Laboratory Tests Test 11/26/17 22:00 11/26/17 23:25 11/28/17 09:28 Monocytes (%) (Auto) 9.6 % (0.0-8.0) 12.6 % (0.0-8.0) Creatinine 1.59 MG/DL (0.60-1.30) 1.46 MG/DL (0.60-1.30) Random Glucose 141 MG/DL (74-106) Estimat Glomerular Filtration Rate 42 ML/MIN (>89) 46 ML/MIN (>89) Urine Turbidity HAZY (CLEAR) Urine Protein 30 mg/dL (NEG-TRACE) Urine Occult Blood SMALL (NEG) Urine Leukocyte Esterase LARGE (NEG) Urine RBC 9 /hpf (0-3) Urine WBC 44 /hpf (0-5) Urine Bacteria FEW /hpf (NONE) Urine Mucus FEW /lpf (OCC) Red Blood Count 4.18 MIL/MM3 (4.50-5.90) Hemoglobin 12.4 GM/DL (13.0-17.0) Hematocrit 36.1 % (39.0-51.0) Eosinophils (%) (Auto) 5.7 % (0.0-4.0) Albumin 3.0 GM/DL (3.4-5.0) Aspartate Amino Transf (AST/SGOT) 12 U/L (15-37) Alanine Aminotransferase (ALT/SGPT) 10 U/L (12-78) PE at Discharge GENERAL: No acute distress, aware of self and place only. CARDIOVASCULAR: Regular rate and rhythm. RESPIRATORY: No accessory muscle use. Clear to auscultation. Breath sounds equal bilaterally. GASTROINTESTINAL: Abdomen soft, non-tender, nondistended. Hepatic and splenic margins not palpable. MUSCULOSKELETAL: Extremities without clubbing, cyanosis, or edema. No obvious deformities. NEUROLOGICAL: Awake and alert.Aware of self and place only. Five out of 5 muscle strength in the arms and legs. Normal speech. PSYCHIATRIC: Paranoid about the police but calm Hospital Course 87-year-old male with a prior to worsening dementia was found wandering. Patient brought in as a [place] act. [place] act has been lifted and patient is to be discharged to his family but they are unable to come pick him up until tomorrow. Abnormal urinalysis: Received Rocephin 1 g IV daily. However urine cultures are negative patien tis asymptomatic DC abx Alzheimer's dementia with behavioral disturbances: Patient is currently calm. Has been evaluated by psychiatry. [place] act lifted. Gait instability continue on physical therapy and occupational therapy and speech therapy Fall precautions HTN: Probably untreated. Started on Lisinopril. Continue to monitor and adjust dose as need. PT for eval The patient improved. Family does not want him to go to [facility]. Family wants to take the patient home he will follow-up with his PCP in [place]. Patient to have PT as outpatient. Pt Condition on Discharge: Stable Discharge Disposition: Discharge Home Discharge Time: > 30 minutes Discharge Instructions DIET: Follow Instructions for: Heart Healthy Diet Activities you can perform: Regular-No Restrictions Follow up Referrals: PCP Follow-up - 1 Week New Medications: Amlodipine (Norvasc) 5 Mg Tab 5 MG PO DAILY for Blood Pressure Management, #30 TAB 0 Refills Famotidine (Famotidine) 20 Mg Tab 10 MG PO BID for Dyspepsia, #30 TAB Continued Medications: Cefuroxime (Ceftin) 250 Mg Tab 500 MG PO BID for 7 Days, #28 TAB Lesley Perkins MD Nov 29, 2017 09:34
--- NOTE | 2017-11-29 12:12 | HHI.FF ---
Face to Face Verification Diagnosis: (1) Alzheimer's dementia (2) Gait instability (3) Confusion Physical Therapy Order: Evaluate and Treat Home Health Nursing Order: Medical education Signs/symptoms of disease process Medication education-adverse effect Nursing assessment with vital signs I have seen patient Faustino Lyman on 11/29/17. My clinical findings support the need for the requested home health care services because: Ltd mobility - disease progression Patient has SOB I certify that my clinical findings support that this patient is homebound because: Post-op weakness Impaired cognitive ability/safety Unsteady gait/balance Lesley Perkins MD Nov 29, 2017 12:12
[2017-11-29] MEDS ORDERED: AMLO5 PO (14:43)
== END 2017-11-29 16:39 | disposition home or self-care (01) | DRG 57 ==
LOC: NEDAMB 20:11 → NEDA 11-27 12:13 → OBSVTOIN 11-27 15:18 → NEPHCDU 11-27 15:25
PROVIDERS: ADMIT Hospitalist; ATTEND Hospitalist
DX: G30.1 Alzheimer's disease with late onset (principal); N17.9 Acute kidney failure, unspecified; F02.81 Dementia in other diseases classified elsewhere, unspecified severity, with behavioral disturbance; N39.0 Urinary tract infection, site not specified; R26.81 Unsteadiness on feet; I10 Essential (primary) hypertension; Z78.1 Physical restraint status; Z91.010 Allergy to peanuts; Z91.83 Wandering in diseases classified elsewhere
CPT/HCPCS: 80053; 80307; 81001; 82948; 83036; 83735; 84100; 84439; 84443; 85025; 87086; 96365; 96366; 96375; 99285; G9168-GN; G9169-GN; G9170-GN; J0696; J2060